=== PATIENT | female | born 1975 | race Caucasian/White ===

== ENCOUNTER 2024-08-21 13:12 | Observation (INO) ==
--- NOTE | 2024-08-21 13:41 | Emergency Department Note ---
Impression & Plan Hydronephrosis with renal and ureteral calculus obstruction, Paraureteric urinoma, Right sided abdominal pain, CKD (chronic kidney disease) stage 3, GFR 30-59 ml/min, Colic, ureteral ED Provider Note NAME: DANIEL VEGA AGE: 49 SEX: F : 1975 ARRIVES VIA: Walk-In INFORMANT: Patient, ED PROVIDER(S): Chapin Purcell MD CHIEF COMPLAINT: Right-sided flank and abdominal pain/back pain MEDICAL DECISION MAKING: Patient presents for the above. IV was established and blood work was obtained along with IV Toradol Zofran and morphine. CT abdomen pelvis performed. Patient did were not require multiple rounds of IV pain medication due to concern for pain. Patient's blood work showed a white count of 13 with a normal H&H and platelet count kidney function with creatinine 1.36. Patient CT show right UVJ calculus 6 mm also associated hydro ureteronephrosis mild free fluid is seen around the upper ureter possible uretic disruption urinoma formation. Right ureter narrowed with ovarian vein crossing compressing anteriorly. Large calculi seen right kidney measuring 22 mm. Given these concerns it is be the on-call urologist Dr. Pond. Patient will be admitted to medicine with urology consultation.. I did speak the on-call hospitalist service Dr. Mclain and the patient was admitted to the medicine service. Discussion w/ other healthcare providers: Dr. Pond with urology Dr. Mclain inpatient medicine service Prior /Outside records reviewed: None Differential diagnosis: Renal colic, UTI, pyelonephritis, appendicitis, diverticulitis, strain, sprain, fracture among others were considered. Diagnostics, as interpreted by me: ECG: None Cardiac monitoring: An order was placed for continuous cardiac monitoring. The monitor shows a rate of 75 with sinus rhythm. Patient was placed on pulse oximetry Medical decision rules: None Imaging studies: I informally interpreted the patient's CT abdomen pelvis does show right-sided hydroureteronephrosis and obstructing ureteral stone with formal report to follow. HPI: Patient presents due to concern for right-sided back and flank pain. The patient states that she thought this was a kidney stone and does feel as though it is similar. Patient states the last time she had a significant kidney stone flare was about 4 years prior. Typically that when she does develop some symptoms she can take some Flomax and some lonm-qjw-qkobely medications and she feels improved. The patient states that she was taking [id number]'s but without relief and did take an oxycodone but still without relief waking up this morning with pain. Patient states that the pain was more localized to the right flank but it is now radiating toward her right abdomen. Patient denies any notable blood in the urine or stool. PAST MEDICAL HISTORY: See Below PAST SURGICAL HISTORY: See Below SOCIAL HISTORY: See Below HOME MEDICATIONS: See Below ALLERGIES: See Below VITALS: See Below PHYSICAL EXAMINATION: GENERAL: Comfortable in appearance, sitting but bent over. EYE EXAM: Normal conjunctiva. PERRL, no anisocoria and EOM's grossly intact w/o pain. OROPHARYNX: Moist mucus membranes, grossly normal dentition. NECK: Trachea midline, no stridor. Supple, no nuchal rigidity, no adenopathy, non-tender. No signs of meningismus. FROM of the neck with good chin to chest and neck extension. LUNGS: Clear to auscultation. Normal chest wall mechanics. HEART: NSR, no MRG. ABDOMEN: Abdomen soft, right-sided abdominal pain, no masses, no rebound or guarding. BACK: Right-sided CVA TTP. SKIN: No rashes and no bruising. UPPER EXTREMITIES: Upper extremities are grossly normal. LOWER EXTREMITIES: Grossly normal, no edema. NEURO EXAM: A&O x3, cranial nerves II-XII grossly intact, normal speech, moves all 4 extremities. Past Med/Surg History Problem List (Updated 08/22/24 @ 17:29 by Chapin Purcell MD) Colic, ureteral (Acute) CKD (chronic kidney disease) stage 3, GFR 30-59 ml/min (Acute) Right sided abdominal pain (Acute) Suspected UTI Chronic renal failure (CRF), stage 2 (mild) Dyslipidemia Hypertension Paraureteric urinoma (Acute) Hydronephrosis with renal and ureteral calculus obstruction (Acute) Family history of renal stone (Acute 04/06/11) Medical History (Updated 08/22/24 @ 17:29 by Chapin Purcell MD) UPJ (ureteropelvic junction) obstruction Surgical History H/O nephrostomy H/O lithotripsy S/P ureteral stent placement Family History Other Renal stone Social History Smoking Status: Never smoker Second Hand Exposure: No; Do You Dip or Chew Tobacco: No; Tobacco Cessation Education Requested by Patient: No Hx Alcohol Use: Yes Alcohol type: wine and hard liquor Hx Substance Use: No Preferred Language: Haitian Communication Ability: Effective Instructional Supervisor Required: No Beliefs That Will Affect Care: None Current Living Situation: Family Current Living Situation Comment: and 3 children. Other Information That Helps Us Care for You: No Feels Safe at Home: Yes Safety Concerns: Feels Safe At This Time Assistive Devices: None Allergies Allergies Allergy/AdvReac Type Severity Reaction Status Date / Time hydrocodone [From Vicodin] AdvReac Intermediate HALLUCINATI Verified 08/22/24 07:45 ONS Home Meds Home Medications Medication Instructions Recorded Confirmed atorvastatin 20 mg tablet 20 mg PO QAM 08/21/24 08/21/24 losartan 25 mg tablet 25 mg PO QAM 08/21/24 08/21/24 Results & Data (ED) Vital Signs Vital Signs - 24 hr 08/21/24 13:14 Temperature 36.6 C Temperature Source Oral Pulse Rate 79 Respiratory Rate 18 Respiratory Effort / Characteristics Non-Labored Spontaneous Respiratory Depth Normal Respiratory Pattern Regular Blood Pressure 147/85 H Blood Pressure Mean 105 Pulse Oximetry 95 Oxygen Delivery Method Room Air Sepsis Recent Fever Within 48 Hours No Sepsis New/Unexplained Change in Mental Status N/A Sepsis Action Taken by Nursing No Action Required Home Medications Current Medication List: was personally reviewed by me Laboratory Data Attestation: I reviewed the patient's lab results. 08/22/24 05:39 08/22/24 05:39 Lab Results 08/21/24 Range/Units 13:26 WBC 13.18 H (4.8-10.8) K/ul RBC 4.71 (4.20-5.40) M/uL Hgb 13.4 (12.0-16.0) g/dl Hct 39.7 (37.0-47.0) % MCV 84.3 (80.0-100.0) fL MCH 28.5 (25.0-34.0) pg MCHC 33.8 (32.0-36.0) g/dL RDW Std Deviation 40.2 (36.4-46.3) fL RDW Coeff of Rudi 13.2 (11.5-14.5) % Plt Count 278 (130-400) K/uL MPV 9.6 (9.4-12.4) fL Immature Gran % (Auto) 0.4 % Neut % (Auto) 84.6 % Lymph % (Auto) 8.0 % [place] % (Auto) 6.5 % Eos % (Auto) 0.2 % Baso % (Auto) 0.3 % Neut # (Auto) 11.15 H (1.40-6.50) K/uL Lymph # (Auto) 1.05 L (1.20-3.40) K/uL [place] # (Auto) 0.86 H (0.11-0.59) K/uL Eos # (Auto) 0.03 (0.00-0.50) K/uL Baso # (Auto) 0.04 (0.00-0.20) K/uL Immature Gran # (Auto) 0.05 (0.01-0.20) K/uL Sodium 136 (136-145) mmol/L Potassium 3.9 (3.5-5.1) mmol/L Chloride 105 (98-107) mmol/L Carbon Dioxide 24 (21-32) mmol/L Anion Gap 7 (3-11) BUN 23 (6-23) mg/dl Creatinine 1.36 H (0.6-1.2) mg/dl Est Cr Clr Drug Dosing 51.1 ml/min eGFR 47.16 BUN/Creatinine Ratio 16.9 (10-20) Glucose 159 H (70-99(Fasting)) mg/dl Calcium 9.1 (8.6-10.3) mg/dl Total Bilirubin 0.7 (0.2-1.0) mg/dl AST 17 (13-39) U/L ALT 26 (7-52) U/L Alkaline Phosphatase 63 (34-104) U/L Total Protein 6.6 (6.0-8.3) gm/dl Albumin 4.3 (3.4-5.0) gm/dl Globulin 2.3 L (2.5-4.0) gm/dl Albumin/Globulin Ratio 1.9 (0.9-2) Lipase 14 (11-82) U/L Administered Medications Atorvastatin Calcium (Atorvastatin 20 Mg Tab) [facility] Stop: 09/21/24 08:59 Last Admin: 08/22/24 10:27 Dose: 20 mg Documented By: MIGDALIA Ceftriaxone Sodium (Rocephin) 1,000 mg in 50 mls @ 100 mls/hr IV Q24H PRISCILLA; Protocol Stop: 08/28/24 18:59 Last Infusion: 08/21/24 20:30 Dose: Infused Documented By: Admin: 08/21/24 20:00 Dose: 100 mls/hr Documented By: GABRIELA Lactated Ringer's (Lr) 1,000 mls @ 15 mls/hr IV .Q24H PRISCILLA Stop: 08/23/24 08:14 Last Infusion: 08/22/24 08:32 Dose: Infused Documented By: Infusion: 08/22/24 08:03 Dose: 0 mls/hr Documented By: Admin: 08/22/24 08:03 Dose: 15 mls/hr Documented By: BROOKS Sodium Chloride (Nss) 1,000 mls @ 80 mls/hr IV .[id number] ONE Stop: 08/22/24 20:42 Last Admin: 08/22/24 16:03 Dose: 80 mls/hr Documented By: MIGDALIA Losartan Potassium (Losartan Potassium 25 Mg Tab) 25 mg PO [facility] Stop: 09/21/24 08:59 Last Admin: 08/22/24 10:27 Dose: 25 mg Documented By: MIGDALIA Morphine Sulfate (Morphine Sulfate 4 Mg/Ml 1 Ml Carp\Vial) 4 mg IV Q3H PRN PRN Reason: Severe Pain (Scale 7, 8, 9,10) Stop: 09/04/24 18:49 Last Admin: 08/22/24 02:13 Dose: 4 mg Documented By: Admin: 08/21/24 19:55 Dose: 4 mg Documented By: GABRIELA Ondansetron HCl (Ondansetron Inj 2 Mg/Ml 2 Ml Vial) 4 mg IV Q6H PRN PRN Reason: Nausea Stop: 09/20/24 18:49 Last Admin: 08/22/24 02:13 Dose: 4 mg Documented By: Admin: 08/21/24 19:55 Dose: 4 mg Documented By: GABRIELA Oxycodone HCl (Oxycodone Hcl Ir 5 Mg Tab (Immediate Release)) 10 mg PO Q4H PRN PRN Reason: Severe Pain (Scale 7, 8, 9,10) Stop: 09/04/24 18:49 Last Admin: 08/22/24 15:00 Dose: 10 mg Documented By: Admin: 08/22/24 10:57 Dose: 10 mg Documented By: Admin: 08/22/24 06:23 Dose: 10 mg Documented By: Admin: 08/21/24 23:08 Dose: 10 mg Documented By: GABRIELA Tamsulosin HCl (Tamsulosin Hcl 0.4 Mg Cap) 0.4 mg PO HS PRISCILLA Stop: 09/20/24 20:59 Last Admin: 08/21/24 20:01 Dose: 0.4 mg Documented By: GABRIELA Discontinued Medications Fentanyl Citrate (Fentanyl Citrate Pf 100 Mcg/2 Ml Vial) 75 mcg IV NOW STA Stop: 08/21/24 14:26 Last Admin: 08/21/24 14:35 Dose: 75 mcg Documented By: JANICE Hydromorphone HCl (Hydromorphone Inj 0.5 Mg/0.5 Ml Syr) 0.5 mg IV NOW STA Stop: 08/21/24 15:21 Last Admin: 08/21/24 15:26 Dose: 0.5 mg Documented By: JANICE Sodium Chloride (Nss) 500 mls @ 999 mls/hr IV .Q31M ONE Stop: 08/21/24 14:07 Last Infusion: 08/21/24 15:30 Dose: Infused Documented By: Admin: 08/21/24 13:58 Dose: 999 mls/hr Documented By: JANICE Sodium Chloride (Nss) 500 mls @ 999 mls/hr IV .Q31M ONE Stop: 08/21/24 15:50 Last Infusion: 08/21/24 20:02 Dose: Infused Documented By: Admin: 08/21/24 15:25 Dose: 999 mls/hr Documented By: JANICE Sodium Chloride (Nss) 500 mls @ 125 mls/hr IV .Q4H PRISCILLA Stop: 08/21/24 22:49 Last Infusion: 08/22/24 00:00 Dose: Infused Documented By: Admin: 08/21/24 18:50 Dose: 125 mls/hr Documented By: GABRIELA Ioversol (Optiray 320 100ml) 94 ml IV ONCE ONE Stop: 08/21/24 14:15 Last Admin: 08/21/24 14:14 Dose: 94 ml Documented By: MOJGAN Ketorolac Tromethamine (Ketorolac Tromethamine 15 Mg/Ml Vial) 10 mg IV NOW STA Stop: 08/21/24 13:38 Last Admin: 08/21/24 13:52 Dose: 10 mg Documented By: JANICE Morphine Sulfate (Morphine Sulfate 4 Mg/Ml 1 Ml Carp\Vial) 4 mg IV NOW STA Stop: 08/21/24 13:38 Last Admin: 08/21/24 14:00 Dose: 4 mg Documented By: JANICE Ondansetron HCl (Ondansetron Inj 2 Mg/Ml 2 Ml Vial) 4 mg IV NOW STA Stop: 08/21/24 13:38 Last Admin: 08/21/24 13:53 Dose: 4 mg Documented By: JANICE Imaging Data Radiologist's Impression: Abdomen/Pelvis CT 08/21/24 13:37 EXAM: CT abd pelvis IV con only CLINICAL HISTORY: R flank pain, nausea hx kidney stones 94ml opti 320 ek.eb TECHNIQUE: CT of the abdomen and pelvis was performed with contrast 94 ml Optiray 320, with the axial images only. One of the following dose reduction techniques was utilized for this exam: Automated exposure control, adjustment of the mA and/or kV according to patient size, and use of iterative reconstruction. COMPARISON: Comparison is made with a previous imaging dated 11/07/2019. FINDINGS: Abdomen: Liver: Normal in size, shape, and density. No focal lesions, cysts, or masses were identified. Hepatic vasculature and biliary ducts are unremarkable. Gallbladder and Biliary System: The gallbladder is normal in size and shape. No wall thickening, pericholecystic fluid, or gallstones were identified. The common bile duct is normal in caliber without dilation. Pancreas: Pancreatic head, body, and tail are visualized and appear normal in size and density. No pancreatic masses or calcifications were noted. The pancreatic duct is not dilated. Spleen: Normal in size, shape, and density. No splenic lesions or masses were identified. A splenunculus is seen. Kidneys and Adrenal Glands: Both kidneys are normal in size, shape, and position. Cortical thickness is within normal limits. A large calculus is seen in the right kidney measuring 22 mm, and another measuring 6 mm. There is a right vesicoureteric junction 6 mm calculus, with mean Hounsfield units of 1255 HUs, leading to an upstream moderate hydronephroureter. There is surrounding fat stranding and mild free fluid around the upper ureter(image [id number]). A 7 mm left renal non-obstructing calculus is seen. No hydronephrosis on the left side. Adrenal glands are unremarkable with no evidence of masses or hyperplasia. Pelvis: Urinary Bladder: Normal in contour and wall thickness. No intraluminal lesions were identified. Uterus: Normal in size and contour. No masses or abnormal thickening. Multiple pelvic phleboliths. Ovaries: Appear normal, with a 19 mm cyst in the right ovary. Peritoneal and Retroperitoneal Structures: No free fluid or abnormal fluid collections were identified within the abdomen or pelvis. No lymphadenopathy was noted. Bowel: The visualized bowel loops are normal in caliber and appearance. No evidence of bowel obstruction or wall thickening. Small fat-containing umbilical hernia. Bones and Soft Tissues: Pelvic bones and soft tissues are unremarkable. No fractures or abnormal masses were identified. Additional: Small hiatus hernia noted. Bilateral fat containing inguinal hernial. The left lower lobe subpleural 7 mm nodule, needs dedicated chest imaging. IMPRESSION: 1. Right vesicoureteric junction 6 mm calculus, with mean Hounsfield units of 1255 HUs, leading to an upstream moderate hydronephroureter. Mild free fluid is seen around the upper ureter, adjacent to the second part of the duodenum(image [id number]), possibly upper ureteric disruption and urinoma formation. Needs urgent clinical attention. 2. There is surrounding fat stranding and enhancement of the right ureteric wall. 3. The right ureter is narrowed at the level of L3, with the ovarian vein crossing/compressing anteriorly, with proximal and distal moderate ureteric dilatation. 4. A large calculus is seen in the right kidney measuring 22 mm(increased in size), and another measuring 6 mm(new). 5. Multiple left renal non-obstructing calculi(stable), the largest measuring 7 mm(new). 6. The left lower lobe partially visualized subpleural 7 mm nodule, needs dedicated chest imaging. Electronically signed by Rashad Montejo 08-21-2024 3:43 PM Discharge Plan Visit Data Chief Complaint: Flank Pain Stated Complaint: POSSIBLE KIDNEY STONE, BACK/SIDE PAIN, NAUSEA ED Provider: Chapin Purcell Discharge Problem: Hydronephrosis with renal and ureteral calculus obstruction, Paraureteric urinoma, Right sided abdominal pain, CKD (chronic kidney disease) stage 3, GFR 30-59 ml/min, Colic, ureteral Patient Disposition: Admitted As Inpatient Discharge Instructions Interventions: ED Discharge Assessment Last Done: 08/21/24 18:36 Discharge Problem: CKD (chronic kidney disease) stage 3, GFR 30-59 ml/min Qualifiers: Chronic kidney disease stage 3 subtype: stage 3a (GFR 45-59) Qualified Code(s): N18.31 - Chronic kidney disease, stage 3a
[2024-08-21] MEDS: KETOROLAC TROMETHAMINE 15 MG/ML VIAL IV STA (13:52)
[2024-08-21] MEDS: ONDANSETRON INJ 2 MG/ML 2 ML VIAL IV STA (13:53)
[2024-08-21 13:56] LABS: Basophils # (auto) 0.04 K/uL (0.00-0.20); Basophils % (auto) 0.3 %; Eosinophils # (auto) 0.03 K/uL (0.00-0.50); Eosinophils % (auto) 0.2 %; Hematocrit (blood only) 39.7 % (37.0-47.0); Hemoglobin 13.4 g/dl (12.0-16.0); Immature Granulocytes # (auto) 0.05 K/uL (0.01-0.20); Immature Granulocytes % (auto) 0.4 %; Lymphocytes # (auto) 1.05 K/uL (1.20-3.40); Mean Corpuscular Hemoglobin 28.5 pg (25.0-34.0); Mean Corpuscular Hgb Conc 33.8 g/dL (32.0-36.0); Mean Corpuscular Volume 84.3 fL (80.0-100.0); Mean Platelet Volume 9.6 fL (9.4-12.4); Monocytes # (auto) 0.86 K/uL (0.11-0.59); Monocytes % (auto) 6.5 %; Neutrophils # (auto) 11.15 K/uL (1.40-6.50); Neutrophils % (auto) 84.6 %; Platelet Count 278 K/uL (130-400); RDW Coefficient of Variation 13.2 % (11.5-14.5); RDW Standard Deviation 40.2 fL (36.4-46.3); Red Blood Count 4.71 M/uL (4.20-5.40); White Blood Count 13.18 K/ul (4.8-10.8)
[2024-08-21] MEDS: SODIUM CHLORIDE 0.9% 500 ML IV ONE ×2 (13:58→15:25)
[2024-08-21] MEDS: MoRPHine SULFATE 4 MG/ML 1 ML CARP\\VIAL IV STA (14:00)
[2024-08-21 14:04] LABS: Albumin Globulin Ratio 1.9 (0.9-2); Albumin Level 4.3 gm/dl (3.4-5.0); BUN Creatinine Ratio 16.9 (10-20); Bilirubin,Total 0.7 mg/dl (0.2-1.0); Calcium 9.1 mg/dl (8.6-10.3); Creatinine Clr Calc Pharmacy 51.1 ml/min; Globulin 2.3 gm/dl (2.5-4.0); Potassium 3.9 mmol/L (3.5-5.1); Total Protein 6.6 gm/dl (6.0-8.3)
[2024-08-21] MEDS: OPTIRAY 320 100ml IV ONE (14:14)
[2024-08-21] MEDS: fentaNYL citrate PF 100 MCG/2 ML VIAL IV STA (14:35)
[2024-08-21] MEDS: HYDROmorphone INJ 0.5 MG/0.5 ML SYR IV STA (15:26)
--- NOTE | 2024-08-21 15:43 | CT Scan Report ---
EXAM: CT abd pelvis IV con only CLINICAL HISTORY: R flank pain, nausea hx kidney stones 94ml opti 320 ek.eb TECHNIQUE: CT of the abdomen and pelvis was performed with contrast 94 ml Optiray 320, with the axial images only. One of the following dose reduction techniques was utilized for this exam: Automated exposure control, adjustment of the mA and/or kV according to patient size, and use of iterative reconstruction. COMPARISON: Comparison is made with a previous imaging dated 11/07/2019. FINDINGS: Abdomen: Liver: Normal in size, shape, and density. No focal lesions, cysts, or masses were identified. Hepatic vasculature and biliary ducts are unremarkable. Gallbladder and Biliary System: The gallbladder is normal in size and shape. No wall thickening, pericholecystic fluid, or gallstones were identified. The common bile duct is normal in caliber without dilation. Pancreas: Pancreatic head, body, and tail are visualized and appear normal in size and density. No pancreatic masses or calcifications were noted. The pancreatic duct is not dilated. Spleen: Normal in size, shape, and density. No splenic lesions or masses were identified. A splenunculus is seen. Kidneys and Adrenal Glands: Both kidneys are normal in size, shape, and position. Cortical thickness is within normal limits. A large calculus is seen in the right kidney measuring 22 mm, and another measuring 6 mm. There is a right vesicoureteric junction 6 mm calculus, with mean Hounsfield units of 1255 HUs, leading to an upstream moderate hydronephroureter. There is surrounding fat stranding and mild free fluid around the upper ureter(image [id number]). A 7 mm left renal non-obstructing calculus is seen. No hydronephrosis on the left side. Adrenal glands are unremarkable with no evidence of masses or hyperplasia. Pelvis: Urinary Bladder: Normal in contour and wall thickness. No intraluminal lesions were identified. Uterus: Normal in size and contour. No masses or abnormal thickening. Multiple pelvic phleboliths. Ovaries: Appear normal, with a 19 mm cyst in the right ovary. Peritoneal and Retroperitoneal Structures: No free fluid or abnormal fluid collections were identified within the abdomen or pelvis. No lymphadenopathy was noted. Bowel: The visualized bowel loops are normal in caliber and appearance. No evidence of bowel obstruction or wall thickening. Small fat-containing umbilical hernia. Bones and Soft Tissues: Pelvic bones and soft tissues are unremarkable. No fractures or abnormal masses were identified. Additional: Small hiatus hernia noted. Bilateral fat containing inguinal hernial. The left lower lobe subpleural 7 mm nodule, needs dedicated chest imaging. IMPRESSION: 1. Right vesicoureteric junction 6 mm calculus, with mean Hounsfield units of 1255 HUs, leading to an upstream moderate hydronephroureter. Mild free fluid is seen around the upper ureter, adjacent to the second part of the duodenum(image [id number]), possibly upper ureteric disruption and urinoma formation. Needs urgent clinical attention. 2. There is surrounding fat stranding and enhancement of the right ureteric wall. 3. The right ureter is narrowed at the level of L3, with the ovarian vein crossing/compressing anteriorly, with proximal and distal moderate ureteric dilatation. 4. A large calculus is seen in the right kidney measuring 22 mm(increased in size), and another measuring 6 mm(new). 5. Multiple left renal non-obstructing calculi(stable), the largest measuring 7 mm(new). 6. The left lower lobe partially visualized subpleural 7 mm nodule, needs dedicated chest imaging. Electronically signed by Rashad Montejo 08-21-2024 3:43 PM
--- NOTE | 2024-08-21 17:48 | History & Physical Report ---
Date of Service August 21, 2024 Assessment & Plan (1) Hydronephrosis with renal and ureteral calculus obstruction: (2) Paraureteric urinoma: (3) Suspected UTI: (4) Chronic renal failure (CRF), stage 2 (mild): (5) Hypertension: (6) Dyslipidemia: Plan Patient 49-year-old female presents to the emergency room severely ill with intractable nausea and flank pain due to obstructing right ureteric calculus with evidence of hydroureter and possibly disruption of the ureter with urinoma versus chronic changes. Admit to the MedSur unit Pain control, cautiously used Toradol in the setting of her renal function. This is usually quite effective in treating renal calculi pain. Will limit number of doses. Monitor renal function IV fluids Empiric antibiotics, attempt to obtain urine culture prior to giving antibiotics N.p.o. after midnight in case patient will need your urologic intervention Communication with urology, aware of patient, able to provide urological consultation possibly intervention tomorrow Antiemetics Continue other home medications as ordered Flomax as this has helped the patient previously History of Present Illness Chief Complaint: Flank pain nausea and vomiting Primary Care Provider: Sadia Ba, Patient is a 49-year-old female presents to the emergency department with above complaints. She has known renal calculi and has had numerous interventions in the past. In the emergency room CAT scan shows right hydro nephro ureter and 6 mm stone as well as a 22 mm renal calculus on the right. Also showed multiple nonobstructing stones on the left. In the emergency room her nausea and pain was difficult to control and was referred to our service for further evaluation. Time my evaluation patient states that her pain and nausea significantly improved. She reports that she was having severe nausea and vomiting at the time she presented to the emergency room. She says she is often treated herself with Flomax at home when she passes kidney stones. She states that she has passed up to an 8 mm stone. However this time the pain was just intractable. It did not improved with and oxycodone that she took at home from stones that she has had in the past. And came to the emergency room. She denies any fever or chills. No noted blood in her urine. She reports that she has had significant surgical interventions on the right ureter and kidney in the past. She is also had nephrostomy tubes in the past. Abnormal findings of the ureter on CAT scan today may be from that previous surgical intervention. She denies any chest pain or shortness of breath. No cough or cold symptoms. No new changes in her bowels. No swelling in her hands arms legs or feet. Allergies Allergy/AdvReac Type Severity Reaction Status Date / Time hydrocodone [From Vicodin] AdvReac Intermediate HALLUCINATI Verified 08/21/24 16:35 ONS Home Medications Medication Instructions Recorded Confirmed Type atorvastatin 20 mg tablet 20 mg PO QAM 08/21/24 08/21/24 History losartan 25 mg tablet 25 mg PO QAM 08/21/24 08/21/24 History Past Med/Surg History Problem List (Updated 08/21/24 @ 17:46 by Francisco Bruno DO) Suspected UTI Chronic renal failure (CRF), stage 2 (mild) Dyslipidemia Hypertension Paraureteric urinoma Hydronephrosis with renal and ureteral calculus obstruction Family history of renal stone (Acute 04/06/11) Medical History (Updated 08/21/24 @ 17:46 by Francisco Bruno DO) UPJ (ureteropelvic junction) obstruction Surgical History H/O nephrostomy H/O lithotripsy S/P ureteral stent placement Family History Other Renal stone Social History Smoking Status: Never smoker Preferred Language: Romansh Feels Safe at Home: Yes Review of Systems Review of Systems: Pertinent positive and negative review of systems as mentioned in the HPI Physical Exam Physical Exam: Constitutional: Alert, ill in appearance, nontoxic HEENT: Mucous membranes moist. Sclera clear Neck: Soft, no adenopathy Lungs: Clear to auscultation, decreased, no wheezes rales or rhonchi CV: S1-S2, regular Abdomen: Soft, mild tenderness, right flank tenderness, no guarding rigidity or rebound, no distention Extremities: No significant edema Musculoskeletal: No significant joint tenderness Neuro: No focal deficits Psych: Cooperative, normal mood Results & Data Results & Data Vital Signs (Past 12 Hours) Vital Signs Temp Pulse Pulse Resp BP BP Pulse Ox 08/21/24 17:00 101 H 16 140/61 94 08/21/24 15:34 88 L 08/21/24 15:12 72 16 135/86 95 08/21/24 13:56 81 08/21/24 13:47 82 16 97 08/21/24 13:47 82 16 138/89 97 08/21/24 13:14 36.6 C 79 18 147/85 H 95 O2 Del Method 08/21/24 17:00 Room Air 08/21/24 15:34 Room Air 08/21/24 15:12 Room Air 08/21/24 13:56 08/21/24 13:47 Room Air 08/21/24 13:47 Room Air 08/21/24 13:14 Room Air Diagnostic Findings Reviewed imaging, laboratory and diagnostic studies. Pertinent findings as below. WBCs 13.1 Hemoglobin 13.4 Electrolytes stable Creatinine 1.36 CT of the abdomen radiology report reviewed
[2024-08-21] MEDS ORDERED: oxyCODONE HCL IR 5 MG TAB (IMMEDIATE RELEASE) PO PRN (18:50)
[2024-08-21] MEDS ORDERED: MELATONIN 3 MG TAB PO PRN (18:50)
[2024-08-21] MEDS ORDERED: ALUMINUM/MAGNESIUM SUSP 30 ML UDC PO PRN (18:50)
[2024-08-21] MEDS ORDERED: KETOROLAC TROMETHAMINE 15 MG/ML VIAL IV PRN (18:50)
[2024-08-21] MEDS: SODIUM CHLORIDE 0.9% 500 ML IV SCH (18:50)
[2024-08-21] MEDS ORDERED: ACETAMINOPHEN 325 MG TAB PO PRN (18:50)
[2024-08-21] MEDS: MoRPHine SULFATE 4 MG/ML 1 ML CARP\\VIAL IV PRN (19:55)
[2024-08-21] MEDS: ONDANSETRON INJ 2 MG/ML 2 ML VIAL IV PRN (19:55)
[2024-08-21] MEDS: cefTRIAXone SODIUM 1,000 MG/50 ML BAG IV SCH (20:00)
[2024-08-21] MEDS: TAMSULOSIN HCL 0.4 MG CAP PO SCH (20:01)
[2024-08-21] MEDS: oxyCODONE HCL IR 5 MG TAB (IMMEDIATE RELEASE) PO PRN (23:08)
[2024-08-21 23:30] LABS: Appearance Urine Clear (Clear); Bilirubin Urine Negative (Negative); Blood Urine Negative (Negative); Color Urine Yellow; Glucose Urine UA Trace (Negative); Ketones Urine Trace (Negative); Leukocyte Esterase Urine Negative (Negative); Nitrite Urine Negative (Negative); Protein Urine Negative (Negative); Specific Gravity Urine > 1.045 (1.000-1.030); Urobilinogen Urine Negative (Negative); pH Urine 5.5 (4.5-7.5)
[2024-08-22 06:03] LABS: Hematocrit (blood only) 36.5 % (37.0-47.0); Hemoglobin 12.3 g/dl (12.0-16.0); Mean Corpuscular Hemoglobin 28.5 pg (25.0-34.0); Mean Corpuscular Hgb Conc 33.7 g/dL (32.0-36.0); Mean Corpuscular Volume 84.5 fL (80.0-100.0); Mean Platelet Volume 9.2 fL (9.4-12.4); Platelet Count 243 K/uL (130-400); RDW Coefficient of Variation 13.2 % (11.5-14.5); Red Blood Count 4.32 M/uL (4.20-5.40); White Blood Count 13.25 K/ul (4.8-10.8)
[2024-08-22 06:18] LABS: BUN Creatinine Ratio 13.4 (10-20); Calcium 7.9 mg/dl (8.6-10.3); Creatinine Clr Calc Pharmacy 46.7 ml/min; Potassium 3.8 mmol/L (3.5-5.1)
--- NOTE | 2024-08-22 07:29 | Urology Consultation ---
Date of Consultation August 22, 2024 Assessment & Plan (1) Paraureteric urinoma: (2) Hydronephrosis with renal and ureteral calculus obstruction: Plan Right UVJ stone with significant hydronephrosis and suspected pressure releasing leak of the upper tracts Although this has a similar appearance to a forniceal rupture, the fluid appears to be medial and anterior to the kidney which implies that likely she ruptured through her prior pyeloplasty repair I discussed that a forniceal rupture or small pressure releasing leak of this nature is extremely amenable to simple stenting and time for recovery I discussed the distal stone is the cause of this upper tract pressure My plan today would be to place a stent to try to relieve that pressure and allow healing of her kidney before returning for cystoscopy, right ureteroscopy, laser lithotripsy and stent exchange in the future She is understanding that today she will simply have a cystoscopy and right ureteral stent placement Risks, benefits, expectations reviewed Currently on ceftriaxone She has also received Toradol, I think I would hold on any further Toradol given her current creatinine level History of Present Illness Attending Physician: Iam Garcia MD History of Present Illness 49-year-old female with a complex history including a prior right pyeloplasty for chronic UPJ obstruction as well as numerous stone interventions on both the left and the right She presented through the emergency room yesterday after a sudden right flank pain and severe nausea Consistent with prior stone episodes although the pain has been more severe Upon arrival she had CT imaging which showed some fluid around the right kidney with significant hydronephrosis extending down to the level of the UVJ and a large stone impacted at this location. She has an additional large stone within the right kidney Her white blood cell count is elevated and her creatinine is 1.49 She has not experienced fevers or chills but she has had an tachycardic She has had prior percutaneous nephrostomy tubeshowever not since her pyeloplasty Pyeloplasty was performed at [place] in [place] Other stone surgeries have been performed at [facility] Allergies Allergy/AdvReac Type Severity Reaction Status Date / Time hydrocodone [From Vicodin] AdvReac Intermediate HALLUCINATI Verified 08/21/24 16:35 ONS Home Medications Medication Instructions Recorded Confirmed Type atorvastatin 20 mg tablet 20 mg PO QAM 08/21/24 08/21/24 History losartan 25 mg tablet 25 mg PO QAM 08/21/24 08/21/24 History Patient History Medical History UPJ (ureteropelvic junction) obstruction Surgical History H/O nephrostomy H/O lithotripsy S/P ureteral stent placement Family History Other Renal stone Social History Smoking Status: Never smoker Second Hand Exposure: No; Do You Dip or Chew Tobacco: No; Tobacco Cessation Education Requested by Patient: No Hx Alcohol Use: Yes Alcohol type: wine and hard liquor Hx Substance Use: No Preferred Language: Belarusian Communication Ability: Effective Block Hand Required: No Beliefs That Will Affect Care: None Current Living Situation: Family Current Living Situation Comment: and 3 children. Other Information That Helps Us Care for You: No Feels Safe at Home: Yes Safety Concerns: Feels Safe At This Time Assistive Devices: Contacts and Hospital Bed Review of Systems Constitutional: no fever, no chills and no fatigue Eyes: no worsening vision Ear, Nose, Mouth, Throat: no facial pain and no pain with swallowing Respiratory: no cough and no dyspnea Cardiovascular: no chest pain and no palpitations Gastrointestinal: + abdominal pain, + nausea and + vomitin g Genitourinary: no dysuria, no difficulty urinating, no urinary frequency and no hematuria As per HPI Musculoskeletal: no back pain Integumentary: no rash and no urticaria Neurologic: no gait abnormality and no unsteadiness Psychiatric: no behavioral changes and no depression Endocrine: no fatigue Physical Exam Constitutional: well developed and well nourished Neck: neck nontender Respiratory: normal respiratory effort; no respiratory distress and does not use accessory muscles Cardiovascular: Rate/Rhythm: + tachycardic Vessels: radial pulses present Extremities: no edema Gastrointestinal (Abdomen): Inspection/Auscultation: abdomen normal to inspection Percussion/Palpation: abdomen soft; abdomen nontender and no guarding Musculoskeletal: Head/Neck/Chest: normocephalic and head atraumatic Extremities: extremities normal to inspection Skin: no rashes and no lesions Trauma: no evidence of skin trauma Neurologic: awake; not obtunded Speech / Cognition: normal speech Motor/Sensory: no tremor Psychiatric: Orientation: alert and oriented x 3 Lymphatic: no lymphadenopathy Results & Data Vital Signs (Past 12 Hours) Vital Signs Temp Pulse Resp BP Pulse Ox O2 Del Method O2 Flow Rate 08/22/24 06:07 37.3 C 116 H 16 101/62 93 Nasal Cannula 3 08/21/24 20:00 37 C 105 H 17 148/85 H 95 Nasal Cannula 3 08/21/24 19:55 Nasal Cannula 3 08/21/24 19:55 36.5 C 95 H 18 155/90 H 96 Nasal Cannula 3 08/21/24 19:55 Nasal Cannula 3 PG Care Time/CCT Total # of Minutes Spent Total Time Spent with Patient: Total time spent is greater than 50% in coordination of care (as documented) at patient's floor/unit and/or counseling patient: Coding Level of Care Code 80452 IN/OBS CONSULT LVL 4,60M Diagnoses Paraureteric urinoma N28.89 Hydronephrosis with renal and ureteral calculus obstruction N13.2
[2024-08-22] MEDS ORDERED: MIDAZOLAM HCL 1 MG/ML 2ML VIAL ONE (08:03)
[2024-08-22] MEDS: LACTATED RINGER'S 1,000 ML IV SCH (08:03)
[2024-08-22] MEDS ORDERED: fentaNYL citrate PF 100 MCG/2 ML VIAL ONE (08:03)
[2024-08-22] MEDS ORDERED: PROPOFOL IV EMULSION 10 MG/ML 20 ML VIAL IV ONE (08:04)
[2024-08-22] MEDS ORDERED: LIDOCAINE 2% 2 ML VIAL/AMP(20MG/ML) INFIL ONE (08:04)
[2024-08-22] MEDS ORDERED: ONDANSETRON INJ 2 MG/ML 2 ML VIAL ONE (08:04)
--- NOTE | 2024-08-22 08:17 | Anesthesiology Consultation ---
Date of Service August 22, 2024 Assessment & Plan Chart Review Chart Review: Acceptable Risk for Surgery and Patient NOT seen in Pre Admission Testing Consults Requested none History Surgery Operation Date: 08/22/24 08:40 Proposed Procedures p Cystoscopy, Right Ureteral Stent Placement - Juventino Pond MD Height/Weight Height: 5 ft 9 in Weight: 76.6 kg Allergies Allergy/AdvReac Type Severity Reaction Status Date / Time hydrocodone [From Vicodin] AdvReac Intermediate HALLUCINATI Verified 08/22/24 07:45 ONS Medications Home Medications Medication Instructions Recorded Confirmed Last Taken atorvastatin 20 mg tablet 20 mg PO QAM 08/21/24 08/21/24 08/20/24 losartan 25 mg tablet 25 mg PO QAM 08/21/24 08/21/24 08/20/24 Active Medications Generic Name Dose Route Start Last Admin Trade Name Freq PRN Reason Stop Dose Admin Ceftriaxone Sodium 1,000 mg in 50 mls @ 100 mls/hr 08/21/24 19:00 08/21/24 20:30 Rocephin IV 08/28/24 18:59 Infused Q24H PRISCILLA Infusion Protocol Lactated Ringer's 1,000 mls @ 15 mls/hr 08/22/24 08:15 08/22/24 08:03 Lr IV 08/23/24 08:14 0 mls/hr .Q24H PRISCILLA Infusion Morphine Sulfate 4 mg 08/21/24 18:50 08/22/24 02:13 Morphine Sulfate 4 Mg/Ml 1 Ml Carp\Vial IV 09/04/24 18:49 4 mg Q3H PRN Administration Severe Pain (Scale 7, 8, 9,10) Ondansetron HCl 4 mg 08/21/24 18:50 08/22/24 02:13 Ondansetron Inj 2 Mg/Ml 2 Ml Vial IV 09/20/24 18:49 4 mg Q6H PRN Administration Nausea Oxycodone HCl 10 mg 08/21/24 18:50 08/22/24 06:23 Oxycodone Hcl Ir 5 Mg Tab (Immediate Release) PO 09/04/24 18:49 10 mg Q4H PRN Administration Severe Pain (Scale 7, 8, 9,10) Tamsulosin HCl 0.4 mg 08/21/24 21:00 08/21/24 20:01 Tamsulosin Hcl 0.4 Mg Cap PO 09/20/24 20:59 0.4 mg HS PRISCILLA Administration NPO Date Last Intake of Fluids: 08/22/24 Time Last Intake of Fluids: 06:30 Last Intake of Fluids Comment: few sips water with meds this am Date Last Intake of Solids: 08/20/24 Time Last Intake of Solids: 19:00 Past Medical History Medical History UPJ (ureteropelvic junction) obstruction Past Family History Family History Other Renal stone Past Surgical History Surgical History H/O nephrostomy H/O lithotripsy S/P ureteral stent placement Social History Smoking Status: Never smoker Do You Dip or Chew Tobacco: No Hx Alcohol Use: Yes Alcohol type: wine and hard liquor alcohol intake frequency: a few times a week Hx Substance Use: No substance use type: does not use Physical Exam Vital Signs Last Vital Signs Temp 37.1 C 08/22/24 07:45 Pulse 125 H 08/22/24 07:45 Resp 20 08/22/24 07:45 BP 123/68 08/22/24 07:45 Pulse Ox 90 08/22/24 07:45 O2 Del Method Room Air 08/22/24 07:45 O2 Flow Rate 3 08/22/24 06:07 Testing Laboratory Results 08/22/24 05:39 08/22/24 05:39 Urine Color Yellow 08/21/24 23:10 Urine Appearance Clear (Clear) 08/21/24 23:10 Urine pH 5.5 (4.5-7.5) 08/21/24 23:10 Ur Specific [place] > 1.045 (1.000-1.030) H 08/21/24 23:10 Urine Protein Negative (Negative) 08/21/24 23:10 Urine Glucose (UA) Trace (Negative) H 08/21/24 23:10 Urine Ketones Trace (Negative) H 08/21/24 23:10 Urine Nitrite Negative (Negative) 08/21/24 23:10 Ur Leukocyte Esterase Negative (Negative) 08/21/24 23:10
[2024-08-22] MEDS ORDERED: fentaNYL citrate PF 100 MCG/2 ML VIAL IV PRN (08:26)
[2024-08-22] MEDS ORDERED: ATROPINE SULFATE 0.1 MG/ML 10ML SYR IV PRN (08:26)
[2024-08-22] MEDS ORDERED: DROPERIDOL 5 MG/2 ML VIAL IV PRN (08:26)
[2024-08-22] MEDS ORDERED: ePHEDrine sulfate 50 MG/ML AMP IV PRN (08:26)
--- NOTE | 2024-08-22 09:02 | Operative Report ---
PG Post Operative Report Pre & Post Diagnosis Operation Date: 08/22/24 08:40 Pre-Op Diagnosis: Hydronephrosis with renal and ureteral calculus obstruction Post-Op Diagnosis: Hydronephrosis with renal and ureteral calculus obstruction I identified the patient and participated in the time-out.: Yes Procedure Operation Date: 08/22/24 08:40 Actual Procedures p Cystoscopy, Right Ureteral Stent Placement(Left) - Juventino Pond MD Surgeon Juventino Pond MD Ms Sql Server Developer none Estimated Blood Loss 0 Findings Consistent with Post-Op Diagnosis Specimens none Description of Procedure The patient was identified in the preoperative holding area, appropriate informed consents were reviewed and completed and the patient was transferred to the operative suite. Upon arrival, appropriate antibiotics and anesthesia were administered and the patient was placed in dorsal lithotomy position and prepped and draped in sterile fashion. To be in the case I passed a 21 Somali cystoscope with 30 degree lens and visual feed crusher operator. Of note, she has some mild prolapse/relaxation of the anterior vaginal wall. Upon entry into the bladder I was able to easily identify the ureteral orifices, there was some mounding of the distal right ureter but no stone visualized. The remainder the bladder was healthy without any mucosal abnormalities. Following my visual inspection and term attention to the right UO and was able to cannulated with a sensor wire which advanced the kidney without difficulty. She has a large stone within the right kidney in addition to a stone at the right UVJ. I initially began placement of a 6 Somali by 24 cm double-J stent, however I did not feel that the length of the stent was appropriatelikely due to some of the relaxation of the distal ureter and anterior vaginal wall. I in turn exchanged it for a 6 Somali by 22-30 cm stent. This had a good curl within the kidney and the bladder and felt more appropriate. I then decompressed her bladder and concluded the case. There were no complications. I attest to the content of the Intraoperative Record and any orders documented therein. Any exceptions are noted below.
--- NOTE | 2024-08-22 09:32 | Fluoroscopy Report ---
FL KUB CLINICAL HISTORY: CYSTO COMPARISON STUDY: CT of the abdomen and pelvis August 21, 2024. FLUOROSCOPY TIME: 16 seconds. Ka,r: 4.27 mGy FLUOROSCOPIC IMAGES: 2 FINDINGS: Fluoroscopy was provided during cystoscopy and right ureteral stent insertion. The ureteral stent is well-positioned. Right renal calculi are noted. IMPRESSION: Fluoroscopy provided during cystoscopy and right ureteral stent insertion. ACT 112: Negative or not required by law. Electronically signed by: Willie Chua M.D. 08/22/2024 9:31 AM
[2024-08-22] MEDS: ATORVASTATIN 20 MG TAB PO SCH (10:27)
[2024-08-22] MEDS: LOSARTAN POTASSIUM 25 MG TAB PO SCH (10:27)
--- NOTE | 2024-08-22 15:33 | Hospitalist Progress Note ---
Date of Service August 22, 2024 Assessment & Plan (1) Hydronephrosis with renal and ureteral calculus obstruction: (2) Paraureteric urinoma: (3) Suspected UTI: (4) Chronic renal failure (CRF), stage 2 (mild): (5) Hypertension: (6) Dyslipidemia: Plan Patient 49-year-old female presents to the emergency room severely ill with intractable nausea and flank pain due to obstructing right ureteric calculus with evidence of hydroureter and possibly disruption of the ureter with urinoma versus chronic changes. Renal colic secondary to ureteral calculus/obstructive uropathy Nephrolithiasis --S/P cystoscopy with right ureteral stent placement by Dr. Pond on 08/22/2024 --CT ABD:Right vesicoureteric junction 6 mm calculus, with mean Hounsfield units of 1255 HUs, leading to an upstream moderate hydronephroureter. Mild free fluid is seen around the upper ureter, adjacent to the second part of the duodenum(image [id number]), possibly upper ureteric disruption and urinoma formation. Needs urgent clinical attention. There is surrounding fat stranding and enhancement of the right ureteric wall. The right ureter is narrowed at the level of L3, with the ovarian vein crossing/compressing anteriorly, with proximal and distal moderate ureteric dilatation. A large calculus is seen in the right kidney measuring 22 mm(increased in size), and another measuring 6 mm(new). Multiple left renal non-obstructing calculi(stable), the largest measuring 7 mm(new). -- Continue IV fluids, pain control Appreciate urology input Empirically on IV Rocephin Also started on Flomax Needs follow-up with urology on discharge Sinus tachycardia Likely secondary to pain Monitor Left lower lobe pulmonary nodule: Incidental finding on CT --CT: The left lower lobe partially visualized subpleural 7 mm nodule, needs dedicated chest imaging. --Needs follow-up as outpatient CKD II Creatinine at baseline Monitor renal function Avoid nephrotoxic agents as able Hypertension Continue home medications Monitor blood pressure DVT Px: SCDs for now Encouraged to ambulate Admission and Anticipated Discharge Date Admission Date: August 21, 2024 Subjective Patient is seen and examined at bedside States having right lower quadrant abdominal/groin discomfort after the stent placement Flank pain resolved Denies any chest pain, dyspnea Reports mild dysuria No other complaints Review of Systems Review of Systems: All systems reviewed & are unremarkable except as noted in Subjective Physical Exam Physical Exam: Physical Exam: Vitals signs as noted above General Appearance:Moderately built and nourished, no apparent distress Head: normocephalic, Atraumatic Eyes: normal inspection, EOMI Neck: supple, Trachea midline Respiratory/Chest: Normal breath sounds, CTA, No accessory muscle use Cardiovascular: S1, S2, No murmur Abdomen/GI:Soft, RLQ mild tender, Bowel sounds present Extremities/Musculoskeletal:normal inspection, no edema Neurologic/Psych:AAOX3, grossly no focal neurological deficits Skin: normal color, warm Results & Data Results & Data Vital Signs (Past 12 Hours) Vital Signs Temp Pulse Pulse Resp BP BP Pulse Ox 08/22/24 15:08 36.9 C 103 H 18 106/67 95 08/22/24 13:21 37.7 C H 103 H 16 100/64 94 08/22/24 11:55 37.2 C 104 H 16 95/59 L 91 08/22/24 10:45 36.8 C 119 H 20 107/69 91 08/22/24 10:15 36.8 C 107 H 16 115/62 94 08/22/24 09:25 36.4 C L 108 H 16 110/67 94 08/22/24 09:15 103 H 14 108/68 96 08/22/24 09:05 36.2 C L 105 H 18 105/67 98 08/22/24 07:45 37.1 C 125 H 20 123/68 90 08/22/24 06:07 37.3 C 116 H 16 101/62 93 O2 Del Method O2 Flow Rate 08/22/24 15:08 Nasal Cannula 2 08/22/24 13:21 Room Air 08/22/24 11:55 Room Air 08/22/24 10:45 Room Air 08/22/24 10:15 Room Air 08/22/24 09:25 Room Air 08/22/24 09:15 Oxymask 4 08/22/24 09:05 Oxymask 6 08/22/24 07:45 Room Air 08/22/24 06:07 Nasal Cannula 3 Laboratory Results Short CBC 08/22/24 Range/Units 05:39 WBC 13.25 H (4.8-10.8) K/ul Hgb 12.3 (12.0-16.0) g/dl Hct 36.5 L (37.0-47.0) % Plt Count 243 (130-400) K/uL BMP 08/22/24 05:39 Sodium 138 Potassium 3.8 Chloride 108 H Carbon Dioxide 23 BUN 20 Creatinine 1.49 H Glucose 142 H Calcium 7.9 L Urine 08/21/24 Range/Units 23:10 Urine Color Yellow Urine Appearance Clear (Clear) Urine pH 5.5 (4.5-7.5) Ur Specific [place] > 1.045 H (1.000-1.030) Urine Protein Negative (Negative) Urine Glucose (UA) Trace H (Negative)
[2024-08-22] MEDS: SODIUM CHLORIDE 0.9% 1,000 ML IV ONE (16:03)
[2024-08-22] MEDS: traZODone HCL 50 MG TAB PO PRN (20:23)
[2024-08-23 05:30] LABS: Hematocrit (blood only) 31.8 % (37.0-47.0); Hemoglobin 10.5 g/dl (12.0-16.0); Mean Corpuscular Hemoglobin 28.5 pg (25.0-34.0); Mean Corpuscular Volume 86.4 fL (80.0-100.0); Mean Platelet Volume 9.1 fL (9.4-12.4); Platelet Count 198 K/uL (130-400); RDW Coefficient of Variation 13.5 % (11.5-14.5); RDW Standard Deviation 42.9 fL (36.4-46.3); Red Blood Count 3.68 M/uL (4.20-5.40); White Blood Count 7.36 K/ul (4.8-10.8)
[2024-08-23 05:57] LABS: BUN Creatinine Ratio 13.1 (10-20); Calcium 7.5 mg/dl (8.6-10.3); Creatinine Clr Calc Pharmacy 70.3 ml/min; Magnesium 1.6 mg/dl (1.7-2.4); Potassium 3.6 mmol/L (3.5-5.1)
--- NOTE | 2024-08-23 07:46 | Electrocardiogram Report ---
Test Reason : Blood Pressure : */* mmHG Vent. Rate : 107 BPM Atrial Rate : 107 BPM P-R Int : 198 ms QRS Dur : 84 ms QT Int : 344 ms P-R-T Axes : 42 23 43 degrees QTcB Int : 459 ms Sinus tachycardia Cannot rule out Anterior infarct , age undetermined Abnormal ECG No previous ECGs available Confirmed by Robert Gipson ([id number]) on 08/23/2024 7:45:52 AM Referred By: REFERRED SELF Confirmed By: Robert Gipson
[2024-08-23 08:35] VITALS: BP 103/59; PULSE 92; RESP 19; TEMP 99; O2SAT 90
[2024-08-23] MEDS ORDERED: MoRPHine SULFATE 4 MG/ML 1 ML CARP\\VIAL IV PRN (09:24)
[2024-08-23] MEDS: MAGNESIUM CHLORIDE W/CALCIUM 64MG DELAYED REL TAB PO SCH (10:23)
[2024-08-23] MEDS ORDERED: PHENAZOPYRIDINE HCL 100 MG TAB PO PRN (11:57)
--- NOTE | 2024-08-23 12:04 | Hospitalist Progress Note ---
Date of Service August 23, 2024 Assessment & Plan (1) Hydronephrosis with renal and ureteral calculus obstruction: (2) Paraureteric urinoma: (3) Suspected UTI: (4) Chronic renal failure (CRF), stage 2 (mild): (5) Hypertension: (6) Dyslipidemia: Plan Patient 49-year-old female presents to the emergency room severely ill with intractable nausea and flank pain due to obstructing right ureteric calculus with evidence of hydroureter and possibly disruption of the ureter with urinoma versus chronic changes. Renal colic secondary to ureteral calculus/obstructive uropathy Nephrolithiasis --S/P cystoscopy with right ureteral stent placement by Dr. Pond on 08/22/2024 --CT ABD:Right vesicoureteric junction 6 mm calculus, with mean Hounsfield units of 1255 HUs, leading to an upstream moderate hydronephroureter. Mild free fluid is seen around the upper ureter, adjacent to the second part of the duodenum(image [id number]), possibly upper ureteric disruption and urinoma formation. Needs urgent clinical attention. There is surrounding fat stranding and enhancement of the right ureteric wall. The right ureter is narrowed at the level of L3, with the ovarian vein crossing/compressing anteriorly, with proximal and distal moderate ureteric dilatation. A large calculus is seen in the right kidney measuring 22 mm(increased in size), and another measuring 6 mm(new). Multiple left renal non-obstructing calculi(stable), the largest measuring 7 mm(new). -- Continue IV fluids, pain control Appreciate urology input: Discussed with Dr. Pond--recommends to follow-up as outpatient Empirically on IV Rocephin>> transition to cefdinir Also started on Flomax Pyridium as needed Needs follow-up with urology on discharge Plan to discharge home today Sinus tachycardia Likely secondary to pain Monitor Left lower lobe pulmonary nodule: Incidental finding on CT --CT: The left lower lobe partially visualized subpleural 7 mm nodule, needs dedicated chest imaging. --Needs follow-up as outpatient -- Informed patient. No history of smoking. Advised to follow-up as outpatient. CKD II Creatinine at baseline Monitor renal function Avoid nephrotoxic agents as able Hypertension Continue home medications Monitor blood pressure DVT Px: SCDs for now Encouraged to ambulate Disposition Home Admission and Anticipated Discharge Date Admission Date: August 21, 2024 Subjective Patient is seen and examined at bedside Right lower quadrant groin pain much improved Denies any dysuria, hematuria, chest pain, dyspnea, nausea, vomiting today Discussed with Dr. Pond No other complaints Plan to be discharged home today Review of Systems Review of Systems: All systems reviewed & are unremarkable except as noted in Subjective Physical Exam Physical Exam: Physical Exam: Vitals signs as noted above General Appearance:Moderately built and nourished, no apparent distress Head: normocephalic, Atraumatic Eyes: normal inspection, EOMI Neck: supple, Trachea midline Respiratory/Chest: Normal breath sounds, CTA, No accessory muscle use Cardiovascular: S1, S2, No murmur Abdomen/GI:Soft, non tender, Bowel sounds present Extremities/Musculoskeletal:normal inspection, no edema Neurologic/Psych:AAOX3, grossly no focal neurological deficits Skin: normal color, warm Results & Data Results & Data Vital Signs (Past 12 Hours) Vital Signs Temp Pulse Resp BP BP Pulse Ox O2 Del Method 08/23/24 08:33 37.2 C 92 H 19 103/59 L 90 Room Air 08/23/24 04:24 37.0 C 93 H 16 104/62 94 Nasal Cannula 08/23/24 00:15 36.7 C 92 H 16 100/64 96 Nasal Cannula 08/23/24 00:03 37.2 C 94 H 16 100/64 93 Nasal Cannula O2 Flow Rate 08/23/24 08:33 08/23/24 04:24 2 08/23/24 00:15 2 08/23/24 00:03 2 Laboratory Results Short CBC 08/23/24 Range/Units 05:16 WBC 7.36 (4.8-10.8) K/ul Hgb 10.5 L (12.0-16.0) g/dl Hct 31.8 L (37.0-47.0) % Plt Count 198 (130-400) K/uL BMP 08/23/24 05:16 Sodium 138 Potassium 3.6 Chloride 109 H Carbon Dioxide 25 BUN 13 Creatinine 0.99 D Glucose 131 H Calcium 7.5 L
--- NOTE | 2024-08-23 12:13 | Discharge Summary ---
Date of Service August 23, 2024 Admission HPI Per Admitting Provider Patient is a 49-year-old female presents to the emergency department with above complaints. She has known renal calculi and has had numerous interventions in the past. In the emergency room CAT scan shows right hydro nephro ureter and 6 mm stone as well as a 22 mm renal calculus on the right. Also showed multiple nonobstructing stones on the left. In the emergency room her nausea and pain was difficult to control and was referred to our service for further evaluation. Time my evaluation patient states that her pain and nausea significantly improved. She reports that she was having severe nausea and vomiting at the time she presented to the emergency room. She says she is often treated herself with Flomax at home when she passes kidney stones. She states that she has passed up to an 8 mm stone. However this time the pain was just intractable. It did not improved with and oxycodone that she took at home from stones that she has had in the past. And came to the emergency room. She denies any fever or chills. No noted blood in her urine. She reports that she has had significant surgical interventions on the right ureter and kidney in the past. She is also had nephrostomy tubes in the past. Abnormal findings of the ureter on CAT scan today may be from that previous surgical intervention. She denies any chest pain or shortness of breath. No cough or cold symptoms. No new changes in her bowels. No swelling in her hands arms legs or feet. Admission Exam Per Admitting Provider Constitutional: Alert, ill in appearance, nontoxic HEENT: Mucous membranes moist. Sclera clear Neck: Soft, no adenopathy Lungs: Clear to auscultation, decreased, no wheezes rales or rhonchi CV: S1-S2, regular Abdomen: Soft, mild tenderness, right flank tenderness, no guarding rigidity or rebound, no distention Extremities: No significant edema Musculoskeletal: No significant joint tenderness Neuro: No focal deficits Psych: Cooperative, normal mood Principal Diagnosis Renal colic secondary to ureteral calculus/obstructive uropathy Nephrolithiasis Suspected left lower lobe pulmonary nodule Acute kidney injury--Resolved Discharge Data Allergies Allergy/AdvReac Type Severity Reaction Status Date / Time hydrocodone [From Vicodin] AdvReac Intermediate HALLUCINATI Verified 08/22/24 07:45 ONS Consultations 08/21/24 16:24 Consult Urology Routine ED Decision to Admit Stat 08/21/24 18:50 Consult Urology Routine Procedures Performed Operation Date: 08/22/24 08:40 Actual Procedures p Cystoscopy, Right Ureteral Stent Placement(Left) - Juventino Pond MD Ordered Studies Laboratory Results WBC 7.36 K/ul (4.8-10.8) 08/23/24 05:16 RBC 3.68 M/uL (4.20-5.40) L 08/23/24 05:16 Hgb 10.5 g/dl (12.0-16.0) L 08/23/24 05:16 Hct 31.8 % (37.0-47.0) L 08/23/24 05:16 MCV 86.4 fL (80.0-100.0) 08/23/24 05:16 MCH 28.5 pg (25.0-34.0) 08/23/24 05:16 MCHC 33.0 g/dL (32.0-36.0) 08/23/24 05:16 RDW Std Deviation 42.9 fL (36.4-46.3) 08/23/24 05:16 RDW Coeff of Rudi 13.5 % (11.5-14.5) 08/23/24 05:16 Plt Count 198 K/uL (130-400) 08/23/24 05:16 MPV 9.1 fL (9.4-12.4) L 08/23/24 05:16 Immature Gran % (Auto) 0.4 % 08/21/24 13:26 Neut % (Auto) 84.6 % 08/21/24 13:26 Lymph % (Auto) 8.0 % 08/21/24 13:26 [place] % (Auto) 6.5 % 08/21/24 13:26 Eos % (Auto) 0.2 % 08/21/24 13:26 Baso % (Auto) 0.3 % 08/21/24 13:26 Neut # (Auto) 11.15 K/uL (1.40-6.50) H 08/21/24 13:26 Lymph # (Auto) 1.05 K/uL (1.20-3.40) L 08/21/24 13:26 [place] # (Auto) 0.86 K/uL (0.11-0.59) H 08/21/24 13:26 Eos # (Auto) 0.03 K/uL (0.00-0.50) 08/21/24 13:26 Baso # (Auto) 0.04 K/uL (0.00-0.20) 08/21/24 13:26 Immature Gran # (Auto) 0.05 K/uL (0.01-0.20) 08/21/24 13:26 Sodium 138 mmol/L (136-145) 08/23/24 05:16 Potassium 3.6 mmol/L (3.5-5.1) 08/23/24 05:16 Chloride 109 mmol/L (98-107) H 08/23/24 05:16 Carbon Dioxide 25 mmol/L (21-32) 08/23/24 05:16 Anion Gap 4 (3-11) 08/23/24 05:16 BUN 13 mg/dl (6-23) 08/23/24 05:16 Creatinine 0.99 mg/dl (0.6-1.2) D 08/23/24 05:16 Est Cr Clr Drug Dosing 70.3 ml/min 08/23/24 05:16 eGFR 69.04 08/23/24 05:16 BUN/Creatinine Ratio 13.1 (10-20) 08/23/24 05:16 Glucose 131 mg/dl (70-99(Fasting)) H 08/23/24 05:16 Calcium 7.5 mg/dl (8.6-10.3) L 08/23/24 05:16 Magnesium 1.6 mg/dl (1.7-2.4) L 08/23/24 05:16 Total Bilirubin 0.7 mg/dl (0.2-1.0) 08/21/24 13:26 AST 17 U/L (13-39) 08/21/24 13:26 ALT 26 U/L (7-52) 08/21/24 13:26 Alkaline Phosphatase 63 U/L (34-104) 08/21/24 13:26 Total Protein 6.6 gm/dl (6.0-8.3) 08/21/24 13:26 Albumin 4.3 gm/dl (3.4-5.0) 08/21/24 13:26 Globulin 2.3 gm/dl (2.5-4.0) L 08/21/24 13:26 Albumin/Globulin Ratio 1.9 (0.9-2) 08/21/24 13:26 Lipase 14 U/L (11-82) 08/21/24 13:26 Urine Color Yellow 08/21/24 23:10 Urine Appearance Clear (Clear) 08/21/24 23:10 Urine pH 5.5 (4.5-7.5) 08/21/24 23:10 Ur Specific [place] > 1.045 (1.000-1.030) H 08/21/24 23:10 Urine Protein Negative (Negative) 08/21/24 23:10 Urine Glucose (UA) Trace (Negative) H 08/21/24 23:10 Urine Ketones Trace (Negative) H 08/21/24 23:10 Urine Blood Negative (Negative) 08/21/24 23:10 Urine Nitrite Negative (Negative) 08/21/24 23:10 Urine Bilirubin Negative (Negative) 08/21/24 23:10 Urine Urobilinogen Negative (Negative) 08/21/24 23:10 Ur Leukocyte Esterase Negative (Negative) 08/21/24 23:10 Impressions Abdomen/Pelvis CT 08/21/24 13:37 EXAM: CT abd pelvis IV con only CLINICAL HISTORY: R flank pain, nausea hx kidney stones 94ml opti 320 ek.eb TECHNIQUE: CT of the abdomen and pelvis was performed with contrast 94 ml Optiray 320, with the axial images only. One of the following dose reduction techniques was utilized for this exam: Automated exposure control, adjustment of the mA and/or kV according to patient size, and use of iterative reconstruction. COMPARISON: Comparison is made with a previous imaging dated 11/07/2019. FINDINGS: Abdomen: Liver: Normal in size, shape, and density. No focal lesions, cysts, or masses were identified. Hepatic vasculature and biliary ducts are unremarkable. Gallbladder and Biliary System: The gallbladder is normal in size and shape. No wall thickening, pericholecystic fluid, or gallstones were identified. The common bile duct is normal in caliber without dilation. Pancreas: Pancreatic head, body, and tail are visualized and appear normal in size and density. No pancreatic masses or calcifications were noted. The pancreatic duct is not dilated. Spleen: Normal in size, shape, and density. No splenic lesions or masses were identified. A splenunculus is seen. Kidneys and Adrenal Glands: Both kidneys are normal in size, shape, and position. Cortical thickness is within normal limits. A large calculus is seen in the right kidney measuring 22 mm, and another measuring 6 mm. There is a right vesicoureteric junction 6 mm calculus, with mean Hounsfield units of 1255 HUs, leading to an upstream moderate hydronephroureter. There is surrounding fat stranding and mild free fluid around the upper ureter(image [id number]). A 7 mm left renal non-obstructing calculus is seen. No hydronephrosis on the left side. Adrenal glands are unremarkable with no evidence of masses or hyperplasia. Pelvis: Urinary Bladder: Normal in contour and wall thickness. No intraluminal lesions were identified. Uterus: Normal in size and contour. No masses or abnormal thickening. Multiple pelvic phleboliths. Ovaries: Appear normal, with a 19 mm cyst in the right ovary. Peritoneal and Retroperitoneal Structures: No free fluid or abnormal fluid collections were identified within the abdomen or pelvis. No lymphadenopathy was noted. Bowel: The visualized bowel loops are normal in caliber and appearance. No evidence of bowel obstruction or wall thickening. Small fat-containing umbilical hernia. Bones and Soft Tissues: Pelvic bones and soft tissues are unremarkable. No fractures or abnormal masses were identified. Additional: Small hiatus hernia noted. Bilateral fat containing inguinal hernial. The left lower lobe subpleural 7 mm nodule, needs dedicated chest imaging. IMPRESSION: 1. Right vesicoureteric junction 6 mm calculus, with mean Hounsfield units of 1255 HUs, leading to an upstream moderate hydronephroureter. Mild free fluid is seen around the upper ureter, adjacent to the second part of the duodenum(image [id number]), possibly upper ureteric disruption and urinoma formation. Needs urgent clinical attention. 2. There is surrounding fat stranding and enhancement of the right ureteric wall. 3. The right ureter is narrowed at the level of L3, with the ovarian vein crossing/compressing anteriorly, with proximal and distal moderate ureteric dilatation. 4. A large calculus is seen in the right kidney measuring 22 mm(increased in size), and another measuring 6 mm(new). 5. Multiple left renal non-obstructing calculi(stable), the largest measuring 7 mm(new). 6. The left lower lobe partially visualized subpleural 7 mm nodule, needs dedicated chest imaging. Electronically signed by Rashad Montejo 08-21-2024 3:43 PM Abdomen Fluoroscopy 08/22/24 00:00 FL KUB CLINICAL HISTORY: CYSTO COMPARISON STUDY: CT of the abdomen and pelvis August 21, 2024. FLUOROSCOPY TIME: 16 seconds. Ka,r: 4.27 mGy FLUOROSCOPIC IMAGES: 2 FINDINGS: Fluoroscopy was provided during cystoscopy and right ureteral stent insertion. The ureteral stent is well-positioned. Right renal calculi are noted. IMPRESSION: Fluoroscopy provided during cystoscopy and right ureteral stent insertion. ACT 112: Negative or not required by law. Electronically signed by: Willie Chua M.D. 08/22/2024 9:31 AM Hospital Course (1) Hydronephrosis with renal and ureteral calculus obstruction: (2) Paraureteric urinoma: (3) Suspected UTI: (4) Chronic renal failure (CRF), stage 2 (mild): (5) Hypertension: (6) Dyslipidemia: Plan Patient 49-year-old female presents to the emergency room severely ill with intractable nausea and flank pain due to obstructing right ureteric calculus with evidence of hydroureter and possibly disruption of the ureter with urinoma versus chronic changes. Renal colic secondary to ureteral calculus/obstructive uropathy Nephrolithiasis --S/P cystoscopy with right ureteral stent placement by Dr. Pond on 08/22/2024 --CT ABD:Right vesicoureteric junction 6 mm calculus, with mean Hounsfield units of 1255 HUs, leading to an upstream moderate hydronephroureter. Mild free fluid is seen around the upper ureter, adjacent to the second part of the duodenum(image [id number]), possibly upper ureteric disruption and urinoma formation. Needs urgent clinical attention. There is surrounding fat stranding and enhancement of the right ureteric wall. The right ureter is narrowed at the level of L3, with the ovarian vein crossing/compressing anteriorly, with proximal and distal moderate ureteric dilatation. A large calculus is seen in the right kidney measuring 22 mm(increased in size), and another measuring 6 mm(new). Multiple left renal non-obstructing calculi(stable), the largest measuring 7 mm(new). -- Continue IV fluids, pain control Appreciate urology input: Discussed with Dr. Pond--recommends to follow-up as outpatient Empirically on IV Rocephin>> transition to cefdinir Also started on Flomax Pyridium as needed Needs follow-up with urology on discharge Plan to discharge home today Sinus tachycardia Likely secondary to pain Monitor Left lower lobe pulmonary nodule: Incidental finding on CT --CT: The left lower lobe partially visualized subpleural 7 mm nodule, needs dedicated chest imaging. --Needs follow-up as outpatient -- Informed patient. No history of smoking. Advised to follow-up as outpatient. Acute kidney injury--POA Creatinine levels improved with IV fluids Monitor renal function Avoid nephrotoxic agents as able Hypertension Continue home medications Monitor blood pressure DVT Px: SCDs for now Encouraged to ambulate Disposition Home Total Time Total Time Spent Total Time Spent (In Minutes): 47 minutes Discharge Plan Discharge Items Patient Disposition: Home - Self-Care Reason For Visit: URETERAL COLIC Discharge Diagnosis: Renal colic secondary to ureteral calculus/obstructive uropathy Nephrolithiasis Suspected left lower lobe pulmonary nodule Acute kidney injury--Resolved Activity: Per Instructions section Exercise/Sports: Gradually increase as tolerated Non-emergency contact: Primary Care Provider and Urologist Call non-emergency contact if: you have any medication questions, your symptoms worsen, your pain is concerning for you and you have a fever Follow-up/Referrals: Sadia Ba, [Primary Care Provider] - Diet: Heart Healthy Addtl Attending Provider Instructions: Follow-up with your primary care physician in 1 week Follow-up with your urologist as advised. Office will call you with appointment. --Complete the antibiotic course--Cefdinir as prescribed. Seek immediate medical attention if your symptoms reoccur or worsen Please take all medications as instructed on discharge list below. Please call if you have any questions or problems. You can reach a [facility] hospitalist on duty at [facility] 24 hours a day by calling [phone] Pending Studies at Discharge: No Stand-Alone Forms: My [facility], Smoking Cessation Medications and DC Order Prescriptions: New tamsulosin 0.4 mg Capsule 0.4 mg PO HS Qty: 30 0RF phenazopyridine [Pyridium] 100 mg Tablet 100 mg PO TID PRN (Reason: dysuria) Qty: 30 0RF oxycodone 5 mg Tablet 5 mg PO Q8H PRN (Reason: pain) Qty: 12 0RF magnesium chloride [Mag 64] 64 mg Tablet,Delayed Release (Dr/Ec) 64 mg PO BID Qty: 10 0RF cefdinir 300 mg capsule 300 mg PO BID Qty: 7 0RF Continued atorvastatin 20 mg tablet 20 mg PO QAM losartan 25 mg tablet 25 mg PO QAM Discharge Orders: Discharge Order (Routine); Ordered 08/23/24 Ordered By: Iam Garcia Admission Data Admit Date/Time: 08/21/24 17:41 Attending Provider: Iam Garcia Admit Provider: Francisco Bruno Primary Care Provider: Sadia Ba Other Providers: Juventino Pond; Francisco Bruno
== END 2024-08-23 13:50 | disposition home or self-care (01) ==
LOC: ED 13:12 → SUATTDRO 17:41 → 3N 17:41 → INTOOBSV 17:41 → 3N 18:36